=== PATIENT | female | born 1995 | race Caucasian/White ===

== ENCOUNTER 2017-04-24 14:22 | Emergency (ER) | payer OTHER ==
--- NOTE | 2017-04-24 15:39 | ED CLINICAL REPORT ---
Clinical Report - Physicians/Mid Levels [facility] [address] [place] [address] 04/24/2017 14:24 Patient: JERROD NGUYEN Time Seen: 14:51. Arrived- By private vehicle. Historian- patient. HISTORY OF PRESENT ILLNESS Chief Complaint: ABDOMINAL PAIN and DYSURIA. At its maximum, severity described as moderate. When seen in the E.D., severity described as moderate. Modifying factors- (Worse with urination). This started yesterday. Quality not described as "pain". It is described as located in the suprapubic area. No nausea, loss of appetite, vomiting or diarrhea. Recent medical care: The patient was seen recently by a health care provider. ( Last UTI 1 month ago. Treated last 2 years ago.). REVIEW OF SYSTEMS Last normal menstrual period- Keeley UTI. She has had pain on urination. The patient has had urinary frequency. No fever, chest pain, difficulty breathing, cough or chills. PAST HISTORY PCP: Pam Christie Illness: Frequent UTIs Ops: None Hosp; None. Additional Surgeries: no known surgeries. Medications: None. Allergies: No Known Drug Allergy. SOCIAL HISTORY Smoker- current status unknown (Vapes). ADDITIONAL NOTES The nursing notes have been reviewed. PHYSICAL EXAM Vital Signs: 04/24/2017 15:55 BP: 106/66. HR: 72. RR: 16. O2 saturation: 100%. Pain level now: 6. 04/24/2017 14:40 BP: 109/55. HR: 87. RR: 18. O2 saturation: 100%. Temp: 98.2 F. Pain level now: 10. Appearance: Alert. No acute distress. ENT: Pharynx normal. Respiratory: No respiratory distress. Breath sounds normal. Abdomen: Mild tenderness in the lower abdomen. Bowel sounds normal. No guarding. Back: No CVA tenderness. Skin: Normal skin color. Extremities: Extremities exhibit normal ROM. No lower extremity edema. LABS, X-RAYS, AND EKG Laboratory Tests: UA-Culture if indicated: (KEHINDE: 04/24/2017 14:45) ( MsgRcvd 04/24/2017 15:37) Final results Test Result Flag Units (Reference) URINE COLOR YELLOW URINE APPEARANCE SL CLOUDY URINE GLUCOSE NEGATIVE (NEGATIVE) URINE BILIRUBIN NEGATIVE (NEGATIVE) URINE KETONE NEGATIVE (NEGATIVE) URINE SPECIFIC GRAVITY 1.025 (1.010-1.030) URINE PH 6.0 (5.0-8.0) URINE PROTEIN TRACE (NEGATIVE) URINE UROBILINOGEN 2.0 EU/dL (0.2-1.0) The urobilinogen reagent area may react with interferingsubstances known to react with Shyam's reagent such asp-aminosalicylic acid and sulfonamides. Atypical colorreactions may be obtained in the presence of highconcentrations of p-aminobenzoic acid. The absence ofurobilinogen cannot be determined with this test. URINE NITRITE NEGATIVE (NEGATIVE) URINE BLOOD 2+ (NEGATIVE) URINE LEUK ESTERASE POSITIVE (NEGATIVE) URINE RBC 25-50 rbc/hpf (0-1) URINE WBC 15-25 wbc/hpf (0-1) URINE EPITHELIAL CELLS 5-10 EPI/hpf (0-5) URINE BACTERIA NONE SEEN (NONE SEEN) URINE COMMENT CULTURE INDICATED 4+ MUCUSURINE CULTURES ARE SET-UP BASED ON THE FOLLOWING CRITERIA:POSITIVE NITRITEPOSITIVE LEUKOCYTE ESTERASEGREATER THAN 10 WHITE BLOOD CELLSMODERATE (2+) OR GREATER BACTERIA Urine: (KEHINDE: 04/24/2017 14:45) ( [facility] 04/24/2017 15:27) Final results Test Result Flag Units (Reference) URINE NEGATIVE Culture, Urine: (KEHINDE: 04/24/2017 14:45) ( [facility] 04/26/2017 11:40) Final results Test Result Flag Units (Reference) CULTURE, URINE DATE: 04/26/17 NO SIGNIFICANT ISOLATION: NO SIGNIFICANT ISOLATION PRELIM REPORT: FINAL REPORT . PROGRESS AND PROCEDURES Disposition: Discharged. Condition: stable. CLINICAL IMPRESSION Urinary tract infection. INSTRUCTIONS (YOU HAVE HAD A LOT OF UTIs YOUR DR NEEDS TO THINK IF THEY WANT TO REFER YOU TO A UROLOGIST TO LOOK FOR A CAUSE OF THE UTIS IMMEDIATE RECHECK IF VOMITING MEDS OR IF YOU DEVELOP A FEVER.). Prescription Medications: Cipro 500 mg: take 1 tab orally every 12 hours for 6 days. No refills. Pyridium 200 mg: take 1 orally every 8 hours as needed for urinary problems. Dispense six (6). No refills. Substitution is permissible. Follow-up: Follow up with your doctor in two weeks. Understanding of the discharge instructions verbalized by patient. (Electronically signed by Elmer Palma MD 04/26/2017 14:09)
--- NOTE | 2017-04-24 15:39 | ED CLINICAL REPORT ---
Clinical Report - Physicians/Mid Levels [facility] [address] [place] [address] 04/24/2017 14:24 Patient: JERROD NGUYEN Time Seen: 14:51. Arrived- By private vehicle. Historian- patient. HISTORY OF PRESENT ILLNESS Chief Complaint: ABDOMINAL PAIN and DYSURIA. At its maximum, severity described as moderate. When seen in the E.D., severity described as moderate. Modifying factors- (Worse with urination). This started yesterday. Quality not described as "pain". It is described as located in the suprapubic area. No nausea, loss of appetite, vomiting or diarrhea. Recent medical care: The patient was seen recently by a health care provider. ( Last UTI 1 month ago. Treated last 2 years ago.). REVIEW OF SYSTEMS Last normal menstrual period- Keeley UTI. She has had pain on urination. The patient has had urinary frequency. No fever, chest pain, difficulty breathing, cough or chills. PAST HISTORY PCP: Pam Christie Illness: Frequent UTIs Ops: None Hosp; None. Additional Surgeries: no known surgeries. Medications: None. Allergies: No Known Drug Allergy. SOCIAL HISTORY Smoker- current status unknown (Vapes). ADDITIONAL NOTES The nursing notes have been reviewed. PHYSICAL EXAM Vital Signs: 04/24/2017 15:55 BP: 106/66. HR: 72. RR: 16. O2 saturation: 100%. Pain level now: 6. 04/24/2017 14:40 BP: 109/55. HR: 87. RR: 18. O2 saturation: 100%. Temp: 98.2 F. Pain level now: 10. Appearance: Alert. No acute distress. ENT: Pharynx normal. Respiratory: No respiratory distress. Breath sounds normal. Abdomen: Mild tenderness in the lower abdomen. Bowel sounds normal. No guarding. Back: No CVA tenderness. Skin: Normal skin color. Extremities: Extremities exhibit normal ROM. No lower extremity edema. LABS, X-RAYS, AND EKG Laboratory Tests: UA-Culture if indicated: (KEHINDE: 04/24/2017 14:45) ( MsgRcvd 04/24/2017 15:37) Final results Test Result Flag Units (Reference) URINE COLOR YELLOW URINE APPEARANCE SL CLOUDY URINE GLUCOSE NEGATIVE (NEGATIVE) URINE BILIRUBIN NEGATIVE (NEGATIVE) URINE KETONE NEGATIVE (NEGATIVE) URINE SPECIFIC GRAVITY 1.025 (1.010-1.030) URINE PH 6.0 (5.0-8.0) URINE PROTEIN TRACE (NEGATIVE) URINE UROBILINOGEN 2.0 EU/dL (0.2-1.0) The urobilinogen reagent area may react with interferingsubstances known to react with Shyam's reagent such asp-aminosalicylic acid and sulfonamides. Atypical colorreactions may be obtained in the presence of highconcentrations of p-aminobenzoic acid. The absence ofurobilinogen cannot be determined with this test. URINE NITRITE NEGATIVE (NEGATIVE) URINE BLOOD 2+ (NEGATIVE) URINE LEUK ESTERASE POSITIVE (NEGATIVE) URINE RBC 25-50 rbc/hpf (0-1) URINE WBC 15-25 wbc/hpf (0-1) URINE EPITHELIAL CELLS 5-10 EPI/hpf (0-5) URINE BACTERIA NONE SEEN (NONE SEEN) URINE COMMENT CULTURE INDICATED 4+ MUCUSURINE CULTURES ARE SET-UP BASED ON THE FOLLOWING CRITERIA:POSITIVE NITRITEPOSITIVE LEUKOCYTE ESTERASEGREATER THAN 10 WHITE BLOOD CELLSMODERATE (2+) OR GREATER BACTERIA Urine: (KHEINDE: 04/24/2017 14:45) ( [facility] 04/24/2017 15:27) Final results Test Result Flag Units (Reference) URINE NEGATIVE Culture, Urine: (KEHINDE: 04/24/2017 14:45) ( [facility] 04/26/2017 11:40) Final results Test Result Flag Units (Reference) CULTURE, URINE DATE: 04/26/17 NO SIGNIFICANT ISOLATION: NO SIGNIFICANT ISOLATION PRELIM REPORT: FINAL REPORT . PROGRESS AND PROCEDURES Disposition: Discharged. Condition: stable. CLINICAL IMPRESSION Urinary tract infection. INSTRUCTIONS (YOU HAVE HAD A LOT OF UTIs YOUR DR NEEDS TO THINK IF THEY WANT TO REFER YOU TO A UROLOGIST TO LOOK FOR A CAUSE OF THE UTIS IMMEDIATE RECHECK IF VOMITING MEDS OR IF YOU DEVELOP A FEVER.). Prescription Medications: Cipro 500 mg: take 1 tab orally every 12 hours for 6 days. No refills. Pyridium 200 mg: take 1 orally every 8 hours as needed for urinary problems. Dispense six (6). No refills. Substitution is permissible. Follow-up: Follow up with your doctor in two weeks. Understanding of the discharge instructions verbalized by patient. (Electronically signed by Elmer Palma MD 04/26/2017 14:09)
--- NOTE | 2017-04-24 15:40 | ED ORDER SUMMARY ---
..... Patient: JERROD NGUYEN OrderSheet [facility] VisitID: [id number] [place] [address] 21y, F Registration Date/Time: 04/24/2017 ORDER SHEET Weight: 63.5 kg (estimated) Allergies: No Known Drug Allergy GENERAL ORDERS: UA-Culture if indicated Urgent (14:49 04/24/2017 DDean R.N. per protocol) (Ack 14:56 Josephine) (15:36 DDean R.N.) Urine Urgent (15:01 04/24/2017 Kole LEON) (Ack 15:07 Josephine) (15:36 DDean R.N.) MEDICATION ORDERS: Zofran ODT PO 4 mg (NOW) (15:03 04/24/2017 Kole LEON) (Ack 15:12 DDean R.N.) (15:30 DDean R.N.) Levaquin PO 500 mg (NOW) (15:05 04/24/2017 Kole LEON) (Ack 15:12 DDean R.N.) (15:30 DDean R.N.) Pyridium PO 100 mg (NOW) (15:04/24/2017 Kole LEON) (Cancelled: Other15:07 Kole LEON) Pyridium PO 200 mg (NOW) (15:07 04/24/2017 Kole LEON) (Ack 15:12 DDean R.N.) (15:30 DDean R.N.) IV FLUIDS: ORDER SHEET NOTES: [Electronically signed by Cari Garcia R.N. (15:58 04/24/2017)] [Electronically signed by Elmer Palma MD (14:09 04/26/2017)] [Electronically locked/signed by Cari Garcia R.N. (15:58 04/24/2017)]
--- NOTE | 2017-04-24 15:40 | ED NURSING NOTES ---
Clinical Report - Nurses [facility] [address] [place] [address] 04/24/2017 14:24 Patient: JERROD NGUYEN TRIAGE Triage time 1440. Acuity: LEVEL 4. Chief Complaint: PAINFUL URINATION, URGENCY and FREQUENCY. 14:40. --14:48 Cari Garcia R.N. 14:40 04/24/17. BP: 109/55. HR: 87. RR: 18. O2 saturation: 100%. Temp: 98.2 F. Pain level now: 04/10. --14:48 Cari Garcia R.N. Weight: 63.5 kg estimated. Height/Length: 67 inches Estimated. BMI: 21.9. --14:46 Cari Garcia R.N. Medications None. --14:46 Cari Garcia R.N. Allergies No Known Drug Allergy. --14:46 Cari Garcia R.N. History Arrived by private vehicle. Historian: patient. Accompanied by friend. No primary care physician. This started yesterday. She has had hematuria. PAST MEDICAL HX: Last normal menstrual period- Irreg- IUD and rachael in place. ( UTI's). SURGERY HX: No history of previous surgery. SOCIAL HX: Smoker- current status unknown (occasionally vape). Occasional alcohol use. No drug use. --14:48 Cari Garcia R.N. ADDITIONAL SURGERIES: no known surgeries. Interventions ID band on patient. To treatment room. --14:48 Cari Garcia R.N. PHYSICAL ASSESSMENT 14:40. Ambulatory to room. Patient gowned. GENERAL / NEURO / PSYCH: Alert. Oriented X 4. Appears in no acute distress. RESPIRATORY: Respirations not labored. CVS: Capillary refill less than 2 seconds. GI / : Pain with urination. She has had frequency of urination. Urgency of urination. Hematuria noted. SKIN: Skin is warm and dry. --14:49 Cari Garcia R.N. NURSING PROGRESS NOTES 14:40. Patient gowned. Head of bed elevated. Reassurance given. Patient identifiers checked. Call light placed in reach. Side rails up. Bed placed in lowest position. Patient ready for evaluation- chart flagged. --14:48 Cari Garcia R.N. 15:15 04/24/2017 Zofran ODT (Ondansetron) PO Oral Disintegrating Tablets 4 mg given. Allergies verified and confirmed 5 rights. --15:30 Cari Garcia R.N. 15:15 04/24/2017 Levaquin (Levofloxacin) PO Capsules 500 mg given. Allergies verified and confirmed 5 rights. --15:30 Cari Garcia R.N. 15:15 04/24/2017 Pyridium (Phenazopyridine HCl) PO Tablets 200 mg given. Allergies verified and confirmed 5 rights. --15:30 Cari Garcia R.N. 14:50. Patient ID band checked for patient name and birthdate: patient confirmed. Clean catch urine collected with return of yellow-colored urine; sample sent to lab for urinalysis and culture. Specimen labeled in the presence of the patient. --15:36 Cari Garcia R.N. DISPOSITION / DISCHARGE 15:40. Condition at departure: stable. No learning barriers present. Discharge instructions provided and reviewed with the patient. Reviewed medication(s) (cipro, pyridium). Treatments reviewed (lots of fluids). Patient verbalized understanding. Written instructions provided in Slovenian. The patient was discharged home and accompanied by diagnostic radiologist. She left the Emergency Department ambulatory and via private vehicle. Nuclear Reactor Operator driving. --15:57 Cari Garcia R.N. 15:55 04/24/17. BP: 106/66. HR: 72. RR: 16. O2 saturation: 100%. Temp: deferred. Pain level now: 04/10. --15:57 Cari Garcia R.N. Locked/Released at 04/24/2017 15:58 by Cari Garcia R.N.
--- NOTE | 2017-04-24 15:40 | ED NURSING NOTES ---
Clinical Report - Nurses [facility] [address] [place] [address] 04/24/2017 14:24 Patient: JERROD NGUYEN TRIAGE Triage time 1440. Acuity: LEVEL 4. Chief Complaint: PAINFUL URINATION, URGENCY and FREQUENCY. 14:40. --14:48 Cari Garcia R.N. 14:40 04/24/17. BP: 109/55. HR: 87. RR: 18. O2 saturation: 100%. Temp: 98.2 F. Pain level now: 04/10. --14:48 Cari Garcia R.N. Weight: 63.5 kg estimated. Height/Length: 67 inches Estimated. BMI: 21.9. --14:46 Cari Garcia R.N. Medications None. --14:46 Cari Garcia R.N. Allergies No Known Drug Allergy. --14:46 Cari Garcia R.N. History Arrived by private vehicle. Historian: patient. Accompanied by friend. No primary care physician. This started yesterday. She has had hematuria. PAST MEDICAL HX: Last normal menstrual period- Irreg- IUD and rachael in place. ( UTI's). SURGERY HX: No history of previous surgery. SOCIAL HX: Smoker- current status unknown (occasionally vape). Occasional alcohol use. No drug use. --14:48 Cari Garcia R.N. ADDITIONAL SURGERIES: no known surgeries. Interventions ID band on patient. To treatment room. --14:48 Cari Garcia R.N. PHYSICAL ASSESSMENT 14:40. Ambulatory to room. Patient gowned. GENERAL / NEURO / PSYCH: Alert. Oriented X 4. Appears in no acute distress. RESPIRATORY: Respirations not labored. CVS: Capillary refill less than 2 seconds. GI / : Pain with urination. She has had frequency of urination. Urgency of urination. Hematuria noted. SKIN: Skin is warm and dry. --14:49 Cari Garcia R.N. NURSING PROGRESS NOTES 14:40. Patient gowned. Head of bed elevated. Reassurance given. Patient identifiers checked. Call light placed in reach. Side rails up. Bed placed in lowest position. Patient ready for evaluation- chart flagged. --14:48 Cari Garcia R.N. 15:15 04/24/2017 Zofran ODT (Ondansetron) PO Oral Disintegrating Tablets 4 mg given. Allergies verified and confirmed 5 rights. --15:30 Cari Garcia R.N. 15:15 04/24/2017 Levaquin (Levofloxacin) PO Capsules 500 mg given. Allergies verified and confirmed 5 rights. --15:30 Cari Garcia R.N. 15:15 04/24/2017 Pyridium (Phenazopyridine HCl) PO Tablets 200 mg given. Allergies verified and confirmed 5 rights. --15:30 Cari Garcia R.N. 14:50. Patient ID band checked for patient name and birthdate: patient confirmed. Clean catch urine collected with return of yellow-colored urine; sample sent to lab for urinalysis and culture. Specimen labeled in the presence of the patient. --15:36 Cari Garcia R.N. DISPOSITION / DISCHARGE 15:40. Condition at departure: stable. No learning barriers present. Discharge instructions provided and reviewed with the patient. Reviewed medication(s) (cipro, pyridium). Treatments reviewed (lots of fluids). Patient verbalized understanding. Written instructions provided in [place]ib[place]ian. The patient was discharged home and accompanied by yard hand. She left the Emergency Department ambulatory and via private vehicle. Gas Pit Worker driving. --15:57 Cari Garcia R.N. 15:55 04/24/17. BP: 106/66. HR: 72. RR: 16. O2 saturation: 100%. Temp: deferred. Pain level now: 04/10. --15:57 Cari Garcia R.N. Locked/Released at 04/24/2017 15:58 by Cari Garcia R.N.
--- NOTE | 2017-04-24 15:40 | ED ORDER SUMMARY ---
..... Patient: JERROD NGUYEN OrderSheet [facility] VisitID: [id number] [place] [address] 21y, F Registration Date/Time: 04/24/2017 ORDER SHEET Weight: 63.5 kg (estimated) Allergies: No Known Drug Allergy GENERAL ORDERS: UA-Culture if indicated Urgent (14:49 04/24/2017 DDean R.N. per protocol) (Ack 14:56 Josephine) (15:36 DDean R.N.) Urine Urgent (15:01 04/24/2017 Kole LEON) (Ack 15:07 Josephine) (15:36 DDean R.N.) MEDICATION ORDERS: Zofran ODT PO 4 mg (NOW) (15:03 04/24/2017 Kole LEON) (Ack 15:12 DDean R.N.) (15:30 DDean R.N.) Levaquin PO 500 mg (NOW) (15:05 04/24/2017 Kole LEON) (Ack 15:12 DDean R.N.) (15:30 DDean R.N.) Pyridium PO 100 mg (NOW) (15:04/24/2017 Kole LEON) (Cancelled: Other15:07 Kole LEON) Pyridium PO 200 mg (NOW) (15:07 04/24/2017 Kole LEON) (Ack 15:12 DDean R.N.) (15:30 DDean R.N.) IV FLUIDS: ORDER SHEET NOTES: [Electronically signed by Cari Garcia R.N. (15:58 04/24/2017)] [Electronically signed by Elmer Palma MD (14:09 04/26/2017)] [Electronically locked/signed by Cari Garcia R.N. (15:58 04/24/2017)]
--- NOTE | 2017-04-26 14:09 | ED MED RECONCILIATION SUMMARY ---
Patient: JERROD NGUYEN Medication Reconciliation Report [facility] VisitID: [id number] [address] [place] [address] 21y, F Registration Date/Time: 04/24/2017 Weight: 63.5 kg Height/Length: 67 in. BMI: 21.9 ALLERGIES: No Known Drug Allergy The patient's Home Medications are listed below: NONE. The source(s) of the original Home Medication information: Not obtained. The following Medications were given to the patient in the Emergency Department: Zofran ODT [PO] PO 4 mg, administered: 04/24/2017 3:15:00 PM Levaquin [PO] PO 500 mg, administered: 04/24/2017 3:15:00 PM Pyridium [PO] PO 200 mg, administered: 04/24/2017 3:15:00 PM The following Medications were prescribed to the patient: Cipro 500 mg: take 1 tab orally every 12 hours for 6 days. No refills. -- Elmer Palma MD Pyridium 200 mg: take 1 orally every 8 hours as needed for urinary problems. Dispense six (6). No refills. Substitution is permissible. -- Elmer Palma MD
--- NOTE | 2017-04-26 14:09 | ED DISCHARGE INSTRUCTIONS ---
Patient: JERROD NGUYEN General Instructions [facility] VisitID: [id number] [place] [address] 21y, F Registration Date/Time: 04/24/2017 Urinary tract infection. INSTRUCTIONS (YOU HAVE HAD A LOT OF UTIs YOUR DR NEEDS TO THINK IF THEY WANT TO REFER YOU TO A UROLOGIST TO LOOK FOR A CAUSE OF THE UTIS IMMEDIATE RECHECK IF VOMITING MEDS OR IF YOU DEVELOP A FEVER.). Prescription Medications: Cipro 500 mg: take 1 tab orally every 12 hours for 6 days. No refills. Pyridium 200 mg: take 1 orally every 8 hours as needed for urinary problems. Dispense six (6). No refills. Substitution is permissible. Follow-up: Follow up with your doctor in two weeks. Understanding of the discharge instructions verbalized by patient. ADDITIONAL INFORMATION Bladder Infection,Female (Adult) A bladder infection ("cystitis" or "UTI") usually causes a constant urge to urinate and a burning when passing urine. Urine may be cloudy, smelly or dark. There may be pain in the lower abdomen. A bladder infection occurs when bacteria from the vaginal area enter the bladder opening (urethra). This can occur from sexual intercourse, wearing tight clothing, dehydration and other factors. Home Care: Drink lots of fluids (at least 6-8 glasses a day, unless you must restrict fluids for other medical reasons). This will force the medicine into your urinary system and flush the bacteria out of your body. Avoid sexual intercourse until your symptoms are gone. Avoid caffeine, alcohol and spicy foods. These can irritate the bladder. A bladder infection is treated with antibiotics. You may also be given Pyridium (generic = phenazopyridine) to reduce the burning sensation. This medicine will cause your urine to become a bright orange color. The orange urine may stain clothing. You may wear a pad or panty-liner to protect clothing. Preventing Future Infections: Always wipe from front to back after a bowel movement. Keep the genital area clean and dry. Drink plenty of fluids each day to avoid dehydration. Both sexual partners should wash before intercourse. Urinate right after intercourse to flush out the bladder. Wear cotton underwear and cotton-lined panty hose; avoid tight-fitting pants. If you are on control pills and are having frequent bladder infections, discuss with your doctor. Follow Up: Return to this facility or see your doctor if ALL symptoms are not gone after three days of treatment. Get Prompt Medical Attention if any of the following occur: Fever of 100.4F (38C) or higher, or as directed by your healthcare provider No improvement by the third day of treatment Increasing back or abdominal pain Repeated vomiting; unable to keep medicine down Weakness, dizziness or fainting Vaginal discharge Pain, redness or swelling in the labia (outer vaginal area) Ciprofloxacin Hydrochloride Oral tablet What is this medicine? CIPROFLOXACIN (sip ulysses FLOX a sin) is a quinolone antibiotic. It is used to treat certain kinds of bacterial infections. It will not work for colds, flu, or other viral infections. How should I use this medicine? Take this medicine by mouth with a glass of water. Follow the directions on the prescription label. Take your medicine at regular intervals. Do not take your medicine more often than directed. Take all of your medicine as directed even if you think your are better. Do not skip doses or stop your medicine early. You can take this medicine with food or on an empty stomach. It can be taken with a meal that contains dairy or calcium, but do not take it alone with a dairy product, like milk or yogurt or calcium-fortified juice. A special MedGuide will be given to you by the pharmacist with each prescription and refill. Be sure to read this information carefully each time. Talk to your medical laboratory technologist regarding the use of this medicine in children. Special care may be needed. What side effects may I notice from receiving this medicine? Side effects that you should report to your doctor or health manager medicare marketing as soon as possible: - allergic reactions like skin rash, itching or hives, swelling of the face, lips, or tongue - breathing problems - confusion, nightmares or hallucinations - feeling faint or lightheaded, falls - irregular heartbeat - joint, muscle or tendon pain or swelling - pain or trouble passing urine -persistent headache with or without blurred vision - redness, blistering, peeling or loosening of the skin, including inside the mouth - seizure - unusual pain, numbness, tingling, or weakness Side effects that usually do not require medical attention (report to your doctor or health manager medicare marketing if they continue or are bothersome): - diarrhea - nausea or stomach upset - white patches or sores in the mouth What may interact with this medicine? Do not take this medicine with any of the following medications: cisapride droperidol terfenadine tizanidine This medicine may also interact with the following medications: antacids caffeine cyclosporin didanosine (ddI) buffered tablets or powder medicines for diabetes medicines for inflammation like ibuprofen, naproxen methotrexate multivitamins omeprazole phenytoin probenecid sucralfate theophylline warfarin What if I miss a dose? If you miss a dose, take it as soon as you can. If it is almost time for your next dose, take only that dose. Do not take double or extra doses. Where should I keep my medicine? Keep out of the reach of children. Store at room temperature below 30 degrees C (86 degrees F). Keep container tightly closed. Throw away any unused medicine after the expiration date. What should I tell my health care provider before I take this medicine? They need to know if you have any of these conditions: -bone problems -cerebral disease -joint problems -irregular heartbeat -kidney disease -liver disease -myasthenia gravis -seizure disorder -tendon problems -an unusual or allergic reaction to ciprofloxacin, other antibiotics or medicines, foods, dyes, or preservatives - or trying to get -breast-feeding What should I watch for while using this medicine? Tell your doctor or health manager medicare marketing if your symptoms do not improve. Do not treat diarrhea with over the counter products. Contact your doctor if you have diarrhea that lasts more than 2 days or if it is severe and watery. You may get drowsy or dizzy. Do not drive, use machinery, or do anything that needs mental alertness until you know how this medicine affects you. Do not stand or sit up quickly, especially if you are an older patient. This reduces the risk of dizzy or fainting spells. This medicine can make you more sensitive to the sun. Keep out of the sun. If you cannot avoid being in the sun, wear protective clothing and use sunscreen. Do not use sun lamps or tanning beds/booths. Avoid antacids, aluminum, calcium, iron, magnesium, and zinc products for 6 hours before and 2 hours after taking a dose of this medicine. You have been given the following additional information: Bladder Infection, Female (Adult) Ciprofloxacin Hydrochloride Oral tablet (Electronically signed by Elmer Palma MD 04/26/2017 14:09)
--- NOTE | 2017-04-26 14:09 | ED MAR SUMMARY ---
..... Medication Administration Record [facility] [address] [address] Patient: JERROD NGUYEN Visit ID: [id number] 21y, F Weight: 63.5 kg Height/Length: 67 in BMI: 21.9 ALLERGIES: No Known Drug Allergy Given 15:04/24/2017 Cari Gacria RAdamarisN. Medication Administered: ZOFRAN ODT [PO] (ONDANSETRON), Dose: 4 mg Oral Disintegrating Tablets PO. Medication Ordered: Zofran ODT PO 4 mg (NOW). Given 15:04/24/2017 Cari Garcia R.N. Medication Administered: LEVAQUIN [PO] (LEVOFLOXACIN), Dose: 500 mg Capsules PO. Medication Ordered: Levaquin PO 500 mg (NOW). Given 15:04/24/2017 Cari Garcia RAdamarisN. Medication Administered: PYRIDIUM [PO] (PHENAZOPYRIDINE HCL), Dose: 200 mg Tablets PO. Medication Ordered: Pyridium PO 200 mg (NOW).
--- NOTE | 2017-04-26 14:09 | ED MED RECONCILIATION SUMMARY ---
Patient: JERROD NGUYEN Medication Reconciliation Report [facility] VisitID: [id number] [address] [place] [address] 21y, F Registration Date/Time: 04/24/2017 Weight: 63.5 kg Height/Length: 67 in. BMI: 21.9 ALLERGIES: No Known Drug Allergy The patient's Home Medications are listed below: NONE. The source(s) of the original Home Medication information: Not obtained. The following Medications were given to the patient in the Emergency Department: Zofran ODT [PO] PO 4 mg, administered: 04/24/2017 3:15:00 PM Levaquin [PO] PO 500 mg, administered: 04/24/2017 3:15:00 PM Pyridium [PO] PO 200 mg, administered: 04/24/2017 3:15:00 PM The following Medications were prescribed to the patient: Cipro 500 mg: take 1 tab orally every 12 hours for 6 days. No refills. -- Elmer Palma MD Pyridium 200 mg: take 1 orally every 8 hours as needed for urinary problems. Dispense six (6). No refills. Substitution is permissible. -- Elmer Palma MD
--- NOTE | 2017-04-26 14:09 | ED MAR SUMMARY ---
..... Medication Administration Record [facility] [address] [place] [address] Patient: JERROD NGUYEN Visit ID: [id number] 21y, F Weight: 63.5 kg Height/Length: 67 in BMI: 21.9 ALLERGIES: No Known Drug Allergy Given 15:04/24/2017 Cari Garcia RAdamarisN. Medication Administered: ZOFRAN ODT [PO] (ONDANSETRON), Dose: 4 mg Oral Disintegrating Tablets PO. Medication Ordered: Zofran ODT PO 4 mg (NOW). Given 15:04/24/2017 Cari Garcia R.N. Medication Administered: LEVAQUIN [PO] (LEVOFLOXACIN), Dose: 500 mg Capsules PO. Medication Ordered: Levaquin PO 500 mg (NOW). Given 15:04/24/2017 Cari Garcia RAdamarisN. Medication Administered: PYRIDIUM [PO] (PHENAZOPYRIDINE HCL), Dose: 200 mg Tablets PO. Medication Ordered: Pyridium PO 200 mg (NOW).
== END 2017-04-24 15:40 | disposition home or self-care (01) ==
LOC: ED SRH 14:22
DX: N39.0 Urinary tract infection, site not specified (principal)
CPT/HCPCS: 90004; 90469; 93070